=== PATIENT | male | born 1950 | race Caucasian/White ===

== ENCOUNTER 2019-04-04 10:30 | Inpatient (IN) | payer MEDICARE, BC ==
[~2019-04-04] VITALS: Ht 180.3 cm; Wt 104.3 kg
[~2019-04-04 10:30] MED LIST: NORV5TAB PO; TADA5TAB PO; VALS320T2 PO
--- NOTE | 2019-04-11 09:19 | HPE ---
DATE OF ADMISSION: 04/18/2019 ATTENDING PHYSICIAN: Dr. Stockton ADMITTING DIAGNOSIS: Osteoarthritis left hip. HISTORY: This is a 68-year-old male patient with progressively worsening left hip pain and stiffness. He has failed to improve with conservative management to include injections in his left hip. Notes pain with weightbearing activities and activities of daily living. He has elected for surgery for his continued symptoms. He has consented, by Dr. Stockton, for a left total hip arthroplasty. X-rays notable for end-stage degenerative changes of the left hip. ALLERGIES: ATENOLOL POWDER, FLOMAX, PENICILLINS, and QUINAPRIL. CURRENT MEDICATIONS: Include: - amlodipine 5 mg 1 tablet once per day - losartan 100 mg 1 tablet once per day - tadalafil 5 mg 1 tablet once per day MEDICAL HISTORY: Includes hypertension, hearing loss, erectile dysfunction. He does have a history of easy bleeding though he does not carry any diagnosis with that. SURGICAL HISTORY: Includes colonoscopy, tonsil and adenoids removed, and appendectomy. FAMILY HISTORY: Hypertension and myocardial infarction ([place]). SOCIAL HISTORY: He does not currently smoke and drinks occasional beer. 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 REVIEW OF SYSTEMS: Denies fever or chills. Denies chest pain, shortness breath or cough. Denies difficulty breathing. Denies abdominal pain. Denies nausea or vomiting. Has persistent pain in his left hip with weightbearing activities and activities of daily living. Denies any recent upper respiratory infection (URI) or urinary tract infection (UTI) symptoms. EXAM: Today reveals an alert, well-nourished, well-developed male patient who walks with a slight limping gait favoring his left side. There is decreased internal-external rotation of the left hip with some irritability with hip range of motion. Straight leg raise testing is negative. Calf is soft, nontender to palpation. He is able to appreciate light touch in the left lower extremity. The skin around the hip is intact. No erythema, edema or ecchymosis. Neck is supple without adenopathy or jugular venous distention (JVD). Lungs are clear to auscultation without rales or wheeze. Heart regular rate and rhythm. Abdomen: Bowel sounds are present. Current height 71 inches, weight 228 pounds, temperature 98.7, blood pressure 150/78, pulse 60, respirations 20. LABORATORY DATA: Chest x-ray no acute cardiopulmonary disease process noted. WBC count of 5.2, RBC count 4.16, hemoglobin 13.9, hematocrit 41.9. ProTime 9.9, INR 1.0. BUN 22, sodium 141, potassium 4.5, glucose 115, creatinine 0.9, ESR 6. EKG is not present for review. IMPRESSION: Symptomatic osteoarthritis of the left hip. PLAN: He has been consented by Dr. Stockton for a left total hip arthroplasty. We reviewed his preoperative instructions to include avoiding nonsteroidal anti-inflammatory drugs (NSAIDs) 5 days prior to surgery, take his medications as directed by his primary, the importance of nothing by mouth (n.p.o.) and what n.p.o. means, the importance of showing up on time and he understands to call the day before to confirm his arrival time. He knows to contact our office of any changes in his history over the next few days. He is not currently on any type of anticoagulants. He does not take an aspirin a day. All his questions are answered. ALEXIS
[2019-04-18] VITALS (7 sets, daily range): BP systolic 132–139; BP diastolic 65–78
[2019-04-18] MEDS ORDERED: CLINDAMYCIN 900 MG in IV 1 EA IV ONE (06:00)
[2019-04-18] MEDS ORDERED: LIDOCAINE 1% MDV 20ML VIAL SQ PRN (06:00)
[2019-04-18] MEDS ORDERED: LR 1,000 ML IV SCH ×3 (06:00→15:45)
[2019-04-18] MEDS ORDERED: dexameTHASONE 4 MG/ML 1ML VIAL (J1100) As Ordered ONE (08:38)
[2019-04-18] MEDS ORDERED: ONDANSETRON 4MG/2ML VIAL (J2405) As Ordered ONE (08:38)
[2019-04-18] MEDS ORDERED: KETOROLAC 60 MG/2 ML VIAL (J1885) As Ordered ONE (08:38)
[2019-04-18] MEDS ORDERED: ACETAMINOPHEN 1000MG 100ML IV BTL (OFIRMEV) (J0131 PER 10MG) As Ordered ONE (08:38)
[2019-04-18] MEDS ORDERED: propofoL 500 MG/50 ML VIAL As Ordered ONE (08:38)
[2019-04-18] MEDS ORDERED: fentaNYL 100 MCG/2 ML INJECTION (J3010) As Ordered ONE (08:38)
[2019-04-18] MEDS ORDERED: MIDAZOLAM INJ 2 MG/2 ML VIAL (J2250) As Ordered ONE (08:39)
[2019-04-18] MEDS ORDERED: EPINEPHrine INJ 1 MG/ML 1ML VIAL As Ordered ONE (10:17)
[2019-04-18] MEDS ORDERED: CLINDAMYCIN INJ 900MG/6ML VIAL As Ordered ONE (10:17)
[2019-04-18] MEDS ORDERED: BUPIVACAINE LIPOSOME/PF 1.3% 20ML VIAL (13.3MG/ML)(EXPAREL)(C9290 PER1MG) As Ordered ONE (10:17)
[2019-04-18] MEDS ORDERED: TRANEXAMIC ACID 100 MG/ML 10ML VIAL As Ordered ONE (10:27)
--- NOTE | 2019-04-18 12:58 | IPN ---
DATE: 04/18/2019 Patient seen and examined. He wished to go ahead with a left total hip arthroplasty. He understands the nature and risks associated with this including bleeding, infection, damage to nerves, vessels, persistent pain, wear loosening, dislocation, leg length inequality, blood clots, medical problems, , among others.
[2019-04-18] MEDS ORDERED: MORPHINE 2 MG/ML 1ML VIAL (J2270) IV PRN (15:45)
[2019-04-18] MEDS ORDERED: fentaNYL 100 MCG/2 ML INJECTION (J3010) IV PRN (15:45)
[2019-04-18] MEDS ORDERED: PERCOCET 5MG/325MG TAB PO PRN (15:45)
[2019-04-18] MEDS ORDERED: MORPHINE 4 MG/ML 1ML VIAL/SYRINGE (J2270) IV PRN (15:45)
[2019-04-18] MEDS ORDERED: ONDANSETRON 4MG/2ML VIAL (J2405) IV PRN ×2 (15:45)
[2019-04-18] MEDS ORDERED: ACETAMINOPHEN TAB 650MG DOSE (2X325MG) PO PRN (15:45)
[2019-04-18] MEDS ORDERED: HYDROMORPHONE HCL 0.5 MG/ 0.5 ML SYRINGE (J1170 PER 1) IV PRN (15:45)
--- NOTE | 2019-04-18 16:17 | REP ---
LEFT HIP, TWO VIEWS: Two views left hip are performed. Total hip prosthesis appears in good position. Osseous structures are intact and well aligned. Metallic skin markus are seen laterally. Electronically Signed by Tawanda Bell MD 04/19/2019 07:57 P
[2019-04-18] MEDS: PERCOCET 5MG/325MG TAB PO PRN (18:00)
--- NOTE | 2019-04-18 19:25 | CR.PDOC ---
General Date of Consultation: Apr 18, 2019 Consultation REASON FOR CONSULTATION/CHIEF COMPLAINT: Physical evaluation HISTORY OF PRESENT ILLNESS: Patient 68 years old male with past history of hypertension presented to the hospital for planned left hip replacement. Surgery was done today. Patient denied any fever, chills, nausea, vomiting, diarrhea or dysuria ALLERGIES: Please see below. HOME MEDICATIONS: Please see below. PAST MEDICAL HISTORY: hypertension, hearing loss, erectile dysfunction PAST SURGICAL HISTORY: Includes colonoscopy, tonsil and adenoids removed, and appendectomy. FAMILY HISTORY: Hypertension and myocardial infarction ([place]). SOCIAL HISTORY: Tobacco use: Denies ETOH: Denies Illicit drug use: Denies REVIEW OF SYSTEMS: 10 point review system negative except as listed above PHYSICAL EXAMINATION: VITAL SIGNS: Please see below. GENERAL APPEARANCE: not in apparent distress HEENT: Normocephalic, atraumatic. Mucous members moist and pink CARDIOVASCULAR: Regular rate and rhythm. No murmurs, rubs or gallops. Radial pulses are intact. There is no lower extremity edema LUNGS: Diminished lung sounds ABDOMEN: Abdomen is soft and nontender. MUSCULOSKELETAL: Range of motion limited in the left hip NEUROLOGICAL: Cranial nerves II-12 are grossly intact. Speech is not dysarthric LABORATORY DATA: Please see below. ASSESSMENT/PLAN: Patient 68 years old male with past history of hypertension presented to the hospital for planned left hip replacement. Surgery was done today. Patient denied any fever, chills, nausea, vomiting, diarrhea or dysuria Hypertension Blood pressures under control Continue home meds Status post left hip replacement Continue pain management Anticoagulation per orthopedic team Vital Signs/I&O Vital Signs Date Time Temp Pulse Resp B/P (MAP) Pulse Ox O2 Delivery O2 Flow Rate FiO2 04/18/19 18:30 97.9 87 15 134/68 (90) 97 Room Air Allergies Coded Allergies: Penicillins (Verified Allergy, Intermediate, hives, 04/04/19) TAPE (Verified Allergy, Intermediate, rash, 04/04/19) latex (Verified Adverse Reaction, Mild, itching, 04/04/19) Home Medications Scheduled Amlodipine Besylate (Norvasc) 5 Mg Tablet, 5 MG PO DAILY, (Reported) Tadalafil (Tadalafil) 5 Mg Tablet, 5 MG PO DAILY, (Reported) Valsartan/Hydrochlorothiazide (Valsartan-Hctz 320-12.5 mg Tab) 1 Each Tablet, 1 TAB PO DAILY, (Reported) YOLA DUKES DO Apr 18, 2019 19:25
[2019-04-18] MEDS: CLINDAMYCIN 900 MG in IV 1 EA IV SCH (20:55)
[2019-04-19] MEDS: PERCOCET 5MG/325MG TAB PO PRN ×4 (01:10→22:33)
[2019-04-19 02:00] VITALS: BP 131/68
[2019-04-19] MEDS: CLINDAMYCIN 900 MG in IV 1 EA IV SCH (05:40)
[2019-04-19] MEDS ORDERED: PERCOCET 5MG/325MG TAB PO PRN (06:15)
[2019-04-19] MEDS ORDERED: XARE10TA PO (06:56)
[2019-04-19] MEDS ORDERED: PERC5TAB12 PO (06:56)
[2019-04-19 09:00] VITALS: BP 137/68
[2019-04-19] MEDS: MOM 30ML SUSPENSION UDC PO SCH (09:58)
[2019-04-19] MEDS: MIRALAX *UNIT DOSE* 17GM PACKET PO SCH (09:58)
[2019-04-19] MEDS: hydroCHLOROthiazide 12.5 MG CAPSULE PO SCH (09:59)
[2019-04-19] MEDS: amLODIPine 5 MG TAB PO SCH (09:59)
[2019-04-19 10:00] VITALS: BP 118/62
[2019-04-19] MEDS: VALSARTAN 80 MG TAB (DIOVAN) PO SCH (10:00)
--- NOTE | 2019-04-19 10:30 | RO ---
DATE OF PROCEDURE: 04/18/2019 PREPROCEDURE DIAGNOSIS: Left hip osteoarthritis. POSTPROCEDURE DIAGNOSIS: Left hip osteoarthritis. PROCEDURE: Total hip arthroplasty using a [place] size 8, high offset 40 +1.5 head, 58 acetabular component. SURGEON: Dr. Armando Stockton WOOLING MACHINE OPERATOR: LINO Bay ANESTHESIA: Spinal. ESTIMATED BLOOD LOSS: 200. COMPLICATIONS: None. PROCEDURE: The patient was taken to the operating room and placed in the supine position. After spinal anesthesia was induced, she was then turned of the right lateral decubitus position on the Boelus positioner. All areas were padded appropriately. Left hip was prepped and draped in usual sterile fashion. Time-out was performed. Longitudinal incision made over the lateral aspect the hip and sharp dissection was carried down through subcutaneous tissue. The fascia was incised to expose the abductor, and the anterior 40% or so the abductor was dissected off exposing the femoral neck and head. We then we dislocated the hip, used a canal initiating reamer, the canal finding reamer and the lateralizing reamer. I initially reamed up to a size 7, but eventually had to go another size larger. I made the neck cut about three-quarters of a fingerbreadth up from the lesser trochanter. The head was removed and the anterior and posterior retractors were placed. Soft tissue was removed. Controlled hemostasis with cautery. The reaming was then done in the acetabular side. I started with a 52, he had a pretty large acetabulum and reamed up to a size 57, which had good concentric reaming and good bleeding bone. I then impacted in a 58 acetabular component and the appropriate amount of anteversion horizontal tilt, made sure it was well seated and down to the floor. I then used apex hole eliminator, followed by the 40 x 58 acetabular liner, I went with the larger head for stability issues. There were no significant osteophytes anteriorly or posteriorly. I had irrigated multiple times up to this point. I then prepared the canal and sequentially broached up to a size 7. This countersunk a little bit, so I elected to go with an 8, which I reamed to and then broached to a size 8, was able to get this down about level with the neck cut and used a calcar planer to smooth off any rough edges. I then trialed off this. I elected to go with the high offset because he did seem to have somewhat of a varus neck and I did medialize things a little bit. I tried the 1.5, and I was very pleased with the position and stability of the hip. I put the hip through range of motion. There is no impingement. Excellent stability in flexion, internal rotation, extension external rotation and minimal shuck in full extension. I then removed the trial components, irrigated, impacted the high offset size 8 [place] stem, impacted down until it was well seated, dried the taper and placed the 1.5 40 head, impacted this in place and reduced the hip with the health care legal assistant's help. Again, I put the hip through range of motion. Excellent stability and position were noted. I then irrigated copiously, placed the TXA deep in the wound. Repaired the minimus with #1 Vicryl suture and the abductor with #1 Vicryl suture, obtaining an excellent repair. I irrigated the deep tissues. I placed the Exparel the deep tissues and repaired the fascia onofre with #1 Vicryl and running Stratafix in both directions. I then irrigated, closed the subcutaneous with 2-0 Vicryl and the skin with markus. Sterile dressing was applied. The patient was taken to recovery room in stable condition. There were no known complications. The plan will be routine postop. The health care legal assistant was instrumental in holding retractors and assisting at reducing and dislocating the hip and assisting in wound closure.
[2019-04-19] MEDS: MORPHINE 15 MG SA TAB PO SCH ×2 (12:01→20:08)
[2019-04-19 13:15] VITALS: BP 126/70
[2019-04-19 18:00] VITALS: BP 127/70
[2019-04-19] MEDS ORDERED: RIVAROXABAN 10 MG TAB (XARELTO) PO SCH (18:00)
[2019-04-19 21:50] VITALS: BP 130/72
[2019-04-20 06:12] VITALS: BP 139/72
[2019-04-20] MEDS: PERCOCET 5MG/325MG TAB PO PRN ×2 (06:36→11:04)
[2019-04-20] MEDS: MORPHINE 15 MG SA TAB PO SCH (09:00)
[2019-04-20] MEDS ORDERED: PREVNAR 13 VACCINE SYRINGE (CPT CODE:90670) IM ONE (09:00)
[2019-04-20 09:23] VITALS: BP 139/72
[2019-04-20] MEDS: hydroCHLOROthiazide 12.5 MG CAPSULE PO SCH (09:23)
[2019-04-20] MEDS: VALSARTAN 80 MG TAB (DIOVAN) PO SCH (09:23)
[2019-04-20] MEDS: amLODIPine 5 MG TAB PO SCH (09:23)
[2019-04-20] MEDS: MOM 30ML SUSPENSION UDC PO SCH (09:24)
[2019-04-20] MEDS: MIRALAX *UNIT DOSE* 17GM PACKET PO SCH (09:24)
--- NOTE | 2019-04-24 14:26 | DSES ---
DATE OF ADMISSION: 04/18/2019 DATE OF DISCHARGE: 04/20/2019 DISCHARGE DIAGNOSIS: Left hip arthritis status post left total hip arthroplasty. HISTORY: This is a 68-year-old male with progressively worsening left hip pain and stiffness. He had failed to improve with conservative treatment. He elected for surgery for his continued symptoms. PROCEDURE PERFORMED: Left total hip arthroplasty. HOSPITAL COURSE: The patient was admitted on the day of surgery and underwent left total hip arthroplasty that was without complications. His hospital course was without complications and he was up with physical therapy per their protocol and his pain was controlled. On the day of discharge, the patient was doing well. He was weightbearing as tolerated using his walker. He is going to resume preoperative medications and diet. He is going to use oral medications for pain control. He will use Xarelto and thromboembolic deterrent (BARBIE) stockings for deep venous thrombosis (DVT) prophylaxis, and he will followup in the office in 2 weeks for wound check and staple removal. For further information please see the medical record.
== END 2019-04-20 11:25 | disposition home or self-care (01) | DRG 470 ==
LOC: EDSTATUS 10:30 → M OR 04-18 11:16 → M MS5PR 04-18 16:20
PROVIDERS: ADMIT Orthopaedic Surgery; ATTEND Orthopaedic Surgery
PROC: 0SRB0JZ Replacement of Left Hip Joint with Synthetic Substitute, Open Approach (ICD-10-PCS; principal; 2019-04-18 13:30)
DX: M16.12 Unilateral primary osteoarthritis, left hip (principal); Z79.899 Other long term (current) drug therapy; I10 Essential (primary) hypertension; H91.90 Unspecified hearing loss, unspecified ear; N52.9 Male erectile dysfunction, unspecified; Z90.49 Acquired absence of other specified parts of digestive tract; Z88.0 Allergy status to penicillin; Z91.040 Latex allergy status

== ENCOUNTER → 2021-06-22 | Outpatient (CLI) | payer MEDICARE, OTHER ==
[~2021-06-22] MED LIST changes: +PERC5TAB12 PO; +XARE10TA PO
[2021-06-22 14:34] LABS: ALBUMIN 3.7 GM/DL (3.2-5.2); BLOOD UREA NITROGEN 14 MG/DL (7-18); CARBON DIOXIDE LEVEL 26 MEQ/L (21-32); CHLORIDE LEVEL 106 MEQ/L (98-107); CREATININE FOR GFR 0.82 MG/DL (0.70-1.30); FOLATE 8.1 NG/ML; FREE T4 0.82 NG/DL (0.76-1.46); GLOMERULAR FILTRATION RATE > 60.0 (>49); GLUCOSE, FASTING 98 MG/DL (70-100); PHOSPHORUS LEVEL 3.6 MG/DL (2.5-4.9); POTASSIUM SERUM 4.2 MEQ/L (3.5-5.1); SODIUM LEVEL 139 MEQ/L (136-145); TOTAL PROTEIN 6.5 GM/DL (6.4-8.2); VITAMIN B12 LEVEL 287 PG/ML
[2021-06-22 14:40] LABS: HEMOGLOBIN A1c 6.2 %
[2021-06-24 11:37] LABS: ALBUMIN 3.85 GM/DL (3.29-5.55); ALBUMIN % 59.2 % (55.8-66.1); ALPHA-1-GLOBULIN % 4.6 % (2.9-4.9); ALPHA-2-GLOBULINS 0.95 GM/DL (0.42-0.99); ALPHA-2-GLOBULINS % 14.6 % (7.1-11.8); BETA-1-GLOBULINS 0.42 GM/DL (0.28-0.60); BETA-1-GLOBULINS % 6.4 % (4.7-7.2); BETA-2-GLOBULINS 0.36 GM/DL (0.19-0.55); BETA-2-GLOBULINS % 5.6 % (3.2-6.5); GAMMA GLOBULIN % 9.6 % (11.1-18.8); GAMMA GLOBULINS 0.62 GM/DL (0.65-1.58)
== END ==
LOC: M PLALAB 11:38
PROVIDERS: ATTEND Psychiatry & Neurology Neurology
DX: E11.9 Type 2 diabetes mellitus without complications (principal); E53.8 Deficiency of other specified B group vitamins; G62.9 Polyneuropathy, unspecified; E07.9 Disorder of thyroid, unspecified